=== PATIENT | female | born 1955 | race African-American/Black ===

== ENCOUNTER → 2017-01-26 | Outpatient (CLI) | payer OTHER ==
[~2017-01-26] MED LIST: ALDACTONE25 MG PO; FISH OIL 1,0001 EAC3 PO; FLAXSEED OIL1000 M2 PO; HYDROCHLOROTHIA25 MG PO; METFORMIN HCL500 M1 PO; NADOLOL40 MG PO; VITAMIN D32000 UNI1 PO
--- NOTE | ~2017-01-26 | MY29 ---
[facility] A Service of [facility] & [facility] RADIOLOGY TEXT RESULTS PATIENT: COCO FARRIS LOCATION: [facility] : 51 UNIT #: [id number] AGE: [address]: Iram Hood MD SEX: F ORDER DR: [id number] [facility] [address] [place], [place] [address] [id number] O MR#: [id number] Acc #: [id number] NAME: COCO FARRIS : 1955 SEX: F STUDY DATE/TIME: 01/26/2017 8:57 UNIT: [facility] ROOM: STUDY DESCRIPTION: MY KARLY SCREENING W/ CAD BILAT Attending Physician: Iram Hood M.D. Referring Physician: Iram Hood M.D. Ordering Physician: Iram Hood M.D. Primary Care Physician: Iram Hood M.D. MEDICAL IMAGING REPORT This report is preliminary unless electronic signature is present EXAM Bilateral digital screening mammogram with CAD. DATE 01/26/2017 HISTORY 61-year-old female with a family history of breast cancer in her mother. History of nodular density in the right breast which, on previous diagnostic mammogram and ultrasound, was favored to represent fat necrosis. COMPARISON Right breast diagnostic mammogram and ultrasound, 08/05/2015. Bilateral screening mammogram 07/22/2015 and 01/21/2014. FINDINGS CC and MLO views were obtained of each breast utilizing digital technique and reviewed with an FDA-approved CAD device. Linear markers were placed over the pectoral regions bilaterally denoting keloid scars. Previously described 1.4 cm parenchymal opacity in the medial hemisphere of the right breast is redemonstrated. It cannot be well seen on today's MLO view, less distinct than on the previous MLO view where it is thought to be in the superior hemisphere. Certainly, it does not appear to have changed in size or morphology based on the CC view in comparison to the more remote mammogram from 01/21/2014. This confirms over 2 years of stability and would imply benignity. No new nodules are identified. There is no architectural distortion. Benign appearing calcifications are present bilaterally. [facility]. [facility] A Service of [facility] / [facility] RADIOLOGY TEXT RESULTS PATIENT: COCO FARRIS LOCATION: [facility] : 51 UNIT #: [id number] AGE: [address]: Iram Hood MD SEX: F ORDER DR: Scattered fibroglandular densities are present. IMPRESSION 1. BIRADS 2. Benign findings. Parenchymal opacity in the medial hemisphere of the right breast has been stable since 01/21/2014, confirming over 2 years of stability and implying benignity. On previous ultrasound, it had features consistent with benign fat necrosis. 2. Routine bilateral screening mammogram is recommended in year. 3. At the patient's request, the findings and recommendations were discussed with her today in the radiology department. Patients over the age of 40 are entered into a reminder system with target due date for the next mammogram. A result letter will also be sent to the patient. BIRADS: 2 Benign finding. Dictated by... Fiona Lucas M.D. THIS IS AN ELECTRONICALLY VERIFIED REPORT Fiona Lucas M.D. at 01/31/2017 3:26 PM JANAY/magda TD: 01/26/2017 17:22 JOB #: [id number] MEDICAL IMAGING REPORT Page 1 of 1 COPY
== END | disposition home or self-care (01) ==
LOC: CWCC 08:22
DX: Z12.31 Encounter for screening mammogram for malignant neoplasm of breast (principal); Z80.3 Family history of malignant neoplasm of breast; N64.89 Other specified disorders of breast
CPT/HCPCS: G0202